=== PATIENT | male | born 1960 | race Caucasian/White ===

== ENCOUNTER 2018-10-04 01:11 | Emergency (ER) | payer MEDICAID, OTHER ==
[2018-10-04 01:44] VITALS: BP 158/86
[2018-10-04] MEDS ORDERED: TENIVAC IM ONE (02:00)
[2018-10-04] MEDS ORDERED: XYLOCAINE 2%/ EPI 1:200,000 INFILTRATI ONE (02:00)
[2018-10-04] MEDS ORDERED: NACL 0.9% IR ONE (02:00)
[2018-10-04] MEDS ORDERED: NACL 0.9% 500 ML IR ONE (02:08)
[2018-10-04] MEDS ORDERED: XYLOCAINE 2%/EPI 1:100,000 INFILTRATI ONE (02:08)
[2018-10-04] MEDS ORDERED: BOOSTRIX IM ONE (02:15)
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
[2018-10-04] MEDS ORDERED: NAPROSYN PO ONE (02:44)
== END 2018-10-04 02:57 ==
LOC: ED 01:11
DX: S61.411A Laceration without foreign body of right hand, initial encounter (principal); Y04.8XXA Assault by other bodily force, initial encounter; Y93.89 Activity, other specified; Y92.89 Other specified places as the place of occurrence of the external cause; Y99.8 Other external cause status
CPT/HCPCS: 90471; 90715

== ENCOUNTER 2021-10-29 01:15 | Inpatient (IN) | payer SELFPAY ==
[2021-10-29] MEDS ORDERED: FUROSEMIDE 40 MG/4 ML INJ IV ONE (02:00)
[2021-10-29 02:42] LABS: Hematocrit 41.3 % (35.5-45.6); Hemoglobin 12.9 gm/dl (11.8-15.2); Mean Corpuscular HGB Conc 31 % (32-34); Mean Corpuscular Volume 91 fl (84-94); Platelet Count 155 K/mm3 (140-440); Red Blood Count 4.56 M/mm3 (3.65-5.03); Red Cell Distribution Width 15.7 % (13.2-15.2)
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
[2021-10-29 02:59] LABS: Alanine Aminotransferase 29 units/L (7-56); Albumin 3.7 g/dL (3.9-5); BUN/Creatinine Ratio 20; Blood Urea Nitrogen 18 mg/dL (9-20); Calcium 8.5 mg/dL (8.4-10.2); Hemolysis Index 10
--- NOTE | 2021-10-29 03:08 | XRay Report ---
CHEST 1 VIEW INDICATION / CLINICAL INFORMATION: liana on bipap. COMPARISON: Chest x-ray 03/20/2016 FINDINGS: SUPPORT DEVICES: None. HEART / MEDIASTINUM: Mild cardiomegaly. LUNGS / PLEURA: Increased perihilar vascular markings likely accentuated by technique. Beam attenuati on in the lower chest appears moderate. No focal consolidation. BONES: No significant osseous abnormality. ADDITIONAL FINDINGS: No significant additional findings. IMPRESSION: 1. Stable cardiomegaly. 2. No focal airspace consolidation. Minimal interstitial edema versus beam attenuation. Signer Name: Hernan Cunningham II, MD Signed: 10/29/2021 3:03 AM Workstation Name: [id number]
[2021-10-29] MEDS ORDERED: ONDANSETRON 4 MG/2 ML INJ IV PRN ×2 (05:00→05:19)
[2021-10-29] MEDS ORDERED: ACETAMINOPHEN 325 MG TAB PO PRN ×2 (05:00→05:19)
[2021-10-29] MEDS ORDERED: MORPHINE 2 MG/1 ML INJ IV PRN (05:00)
[2021-10-29] MEDS ORDERED: MORPHINE 4 MG/1 ML INJ IV PRN (05:19)
[2021-10-29] MEDS ORDERED: MAGNESIUM HYDROXIDE (MOM) ORAL LIQD UDC PO PRN (05:19)
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
[2021-10-29] MEDS: FUROSEMIDE 40 MG/4 ML INJ IV SCH ×2 (06:36→18:55)
[2021-10-29] MEDS: MORPHINE 2 MG/1 ML INJ IV PRN (10:41)
--- NOTE | 2021-10-29 11:43 | Event Note ---
Date: 10/29/21 Patient still seen and examined still with shortness of breath appears to be in A. fib. Pulmonary was consulted on admission I will go ahead and consult jackhammer splitter operator to assist with management of the patient's. We will try to obtain accurate home medication history and reconciled almost any records available. Continue IM care
[2021-10-29] MEDS ORDERED: AMIODARONE 900 MG in DEXTROSE 5% IN WATER 482 ML IV SCH (14:30)
[2021-10-29] MEDS ORDERED: AMIODARONE 150 MG in DEXTROSE 5% IN WATER 97 ML IV SCH (14:30)
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
[2021-10-29] MEDS: HEPARIN 5,000 UNIT/1 ML VIAL SUB-Q SCH ×2 (14:45→21:47)
[2021-10-30 05:16] LABS: Basophils # (Auto) 0.1 K/mm3 (0.0-0.1); Basophils % (Auto) 0.3 % (0.0-1.8); Eosinophils % (Auto) 0.1 % (0.0-4.3); Hematocrit 43.4 % (35.5-45.6); Hemoglobin 14.2 gm/dl (11.8-15.2); Lymphocytes # (Auto) 2.9 K/mm3 (1.2-5.4); Mean Corpuscular HGB Conc 33 % (32-34); Mean Corpuscular Volume 91 fl (84-94); Monocytes % (Auto) 10.5 % (0.0-7.3); Platelet Count 209 K/mm3 (140-440); Red Blood Count 4.77 M/mm3 (3.65-5.03); Red Cell Distribution Width 16.1 % (13.2-15.2)
[2021-10-30 05:30] LABS: Calcium 8.6 mg/dL (8.4-10.2)
[2021-10-30] MEDS: FUROSEMIDE 40 MG/4 ML INJ IV SCH ×2 (05:31→18:53)
[2021-10-30] MEDS: HEPARIN 5,000 UNIT/1 ML VIAL SUB-Q SCH ×2 (05:31→13:20)
--- NOTE | 2021-10-30 11:00 | Event Note ---
Date: 10/30/21 Agree with IMS assessment. Reviewed cards notes and in light of EF being so significantly lower now, patient could have central sleep apnea from left sided heart failure. No real risk factors for COPD but this could be worked up as an outpatient. Would need in house PSG given heart disease but my office would not be able to do this. Could see if he could be arranged to be done at [facility] post discharge. All other management per cardiology. Will sign off.
--- NOTE | 2021-10-30 12:14 | Progress Note ---
Assessment and Plan Assessment and plan: 60-year-old male with known history of CVA, coronary artery disease with stent placement, CHF presenting in the emergency room today complaining of shortness of breath which started earlier today. Shortness of breath was said to have gotten progressively worse. He denies any chest pain, no nausea or vomiting and no abdominal pain. Denies any headache or dizziness and denies any diaphoresis. He has had some mild cough which is nonproductive. Patient denies any sick contacts and no recent travel. Denies any contact with anyone with COVID-19. Upon arrival in the emergency room patient was found to be in acute respiratory distress and was subsequently placed on BiPAP. Work-up in the emergency room today, chest x-ray reveals stable cardiomegaly, no focal airspace consolidation, there is minimal interstitial edema. Labs were significant for BNP of 1219. All other labs were essentially unrem arkable. CT angio pending to rule out pulmonary embolism and Doppler of lower extremities also pending. 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 Also noted to have atrial fibrillation for which patient is currently on amiodarone drip. It is presumed that the patient has obstructive sleep apnea considering his obesity and sleep pattern. Outpatient sleep study will be conducted and recommended on discharge. He does have a noted leukocytosis although did not receive any aust[place] roids no evidence of fever and no source of infection appreciated. Will monitor and trend this. We will continue monitoring in IMCU at this time until weaned off amiodarone. We will check thyroid function in addition to current work-up. Assessment Acute exacerbation of congestive heart failure presumed systolic Atrial fibrillation Morbid obesity History of CVA Presumed obstructive sleep apnea Systemic inflammatory response syndrome without evidence of sepsis or organ dysfunction Plan Continue Amiadrone drip Check TSH, Free T4 Continue Diuretics and monitor daily wieght Continue appropriate home medications DVT/GI prophy 35 minutes critical care time History Interval history: Patient seen and examined, resting and sitting up. Still with some wheezing but HR improved and breathing much better. Hospitalist Physical - Physical exam Narrative exam: VITAL SIGNS: Reviewed. GENERAL: The patient appears normally developed, Vital signs as documented. HEAD: No signs of head trauma. EYES: Pupils are equal. Extraocular motions intact. EARS: Hearing grossly intact. MOUTH: Oropharynx is normal. NECK: No adenopathy, no JVD. CHEST: Chest with bibasilar wheeze with mild crepitation breath sounds bilaterally. CARDIAC: Irregularly irregular. S1 and S2, without murmurs, gallops, or rubs. VASCULAR: 2+ bilateral pitting edema. Peripheral pulses normal and equal in all extremities. ABDOMEN: Soft, non tender and non distended. No rebound or guarding, and no masses palpated. Bowel Sounds normal. MUSCULOSKELETAL: Good range of motion of all major joints. Extremities without clubbing, cyanosis. 2+ bilateral pitting edema. NEUROLOGIC EXAM: Alert and oriented x 3 No focal sensory or strength deficits. Speech normal. Follows commands. PSYCHIATRIC: Mood normal. SKIN: detail exam as documented in skin assessment - Constitutional Vitals: Temp Pulse Resp BP Pulse Ox 97.9 F 88 25 H 138/80 98 10/30/21 08:00 10/30/21 11:00 10/30/21 11:00 10/30/21 11:00 10/30/21 11:00 General appearance: Present: mild distress HEART Score - HEART Score Troponin: Troponin T < 0.010 ng/mL (0.00-0.029) 10/29/21 02:00 Results - Labs CBC & Chem 7: 10/30/21 04:34 10/30/21 04:34 Labs: Laboratory Last Values WBC 19.4 K/mm3 (4.5-11.0) H 10/30/21 04:34 RBC 4.77 M/mm3 (3.65-5.03) 10/30/21 04:34 Hgb 14.2 gm/dl (11.8-15.2) 10/30/21 04:34 Hct 43.4 % (35.5-45.6) 10/30/21 04:34 MCV 91 fl (84-94) 10/30/21 04:34 MCH 30 pg (28-32) 10/30/21 04:34 MCHC 33 % (32-34) 10/30/21 04:34 RDW 16.1 % (13.2-15.2) H 10/30/21 04:34 Plt Count 209 K/mm3 (140-440) 10/30/21 04:34 Lymph % (Auto) 15.0 % (13.4-35.0) 10/30/21 04:34 Shannon % (Auto) 10.5 % (0.0-7.3) H 10/30/21 04:34 Eos % (Auto) 0.1 % (0.0-4.3) 10/30/21 04:34 Baso % (Auto) 0.3 % (0.0-1.8) 10/30/21 04:34 Lymph # (Auto) 2.9 K/mm3 (1.2-5.4) 10/30/21 04:34 Shannon # (Auto) 2.0 K/mm3 (0.0-0.8) H 10/30/21 04:34 Eos # (Auto) 0.0 K/mm3 (0.0-0.4) 10/30/21 04:34 Baso # (Auto) 0.1 K/mm3 (0.0-0.1) 10/30/21 04:34 Seg Neutrophils % 74.1 % (40.0-70.0) H 10/30/21 04:34 Seg Neutrophils # 14.4 K/mm3 (1.8-7.7) H 10/30/21 04:34 D-Dimer 1418.90 ng/mlDDU (0-234) H 10/29/21 05:38 ABG pH 7.381 (7.320-7.450) 10/29/21 02:00 POC ABG pCO2 38.1 mmHg (32.0-48.0) 10/29/21 02:00 POC ABG pO2 73.8 mmHg (83-108) L 10/29/21 02:00 POC ABG HCO3 22.1 10/29/21 02:00 ABG O2 Saturation 94.4 (0-100) 10/29/21 02:00 POC ABG Base Excess -2.6 10/29/21 02:00 ABG Hemoglobin 13.7 (12.0-17.5) 10/29/21 02:00 ABG Oxyhemoglobin 93.4 (94-98) L 10/29/21 02:00 ABG Methemoglobin 0.3 (0.0-1.5) 10/29/21 02:00 Carboxyhemoglobin 0.8 (0.5-1.5) 10/29/21 02:00 FiO2 % 45 10/29/21 02:00 Sodium 135 mmol/L (137-145) L 10/30/21 04:34 Potassium 4.7 mmol/L (3.6-5.0) 10/30/21 04:34 Chloride 97.5 mmol/L (98-107) L 10/30/21 04:34 Carbon Dioxide 25 mmol/L (22-30) 10/30/21 04:34 Anion Gap 17 mmol/L 10/30/21 04:34 BUN 30 mg/dL (9-20) H 10/30/21 04:34 Creatinine 1.3 mg/dL (0.8-1.3) 10/30/21 04:34 Estimated GFR 56 ml/min 10/30/21 04:34 BUN/Creatinine Ratio 23 % 10/30/21 04:34 Glucose 141 mg/dL (75-100) H 10/30/21 04:34 Calcium 8.6 mg/dL (8.4-10.2) 10/30/21 04:34 Magnesium 1.80 mg/dL (1.7-2.3) 10/29/21 13:24 Total Bilirubin 0.50 mg/dL (0.1-1.2) 10/29/21 02:00 AST 44 units/L (5-40) H 10/29/21 02:00 ALT 29 units/L (7-56) 10/29/21 02:00 Alkaline Phosphatase 154 units/L (35-129) H 10/29/21 02:00 Troponin T < 0.010 ng/mL (0.00-0.029) 10/29/21 02:00 NT-Pro-B Natriuret Pep 1219 pg/mL (0-900) H 10/29/21 02:00 Total Protein 7.7 g/dL (6.3-8.2) 10/29/21 02:00 Albumin 3.7 g/dL (3.9-5) L 10/29/21 02:00 Albumin/Globulin Ratio 0.9 % 10/29/21 02:00 TSH 3.290 mlU/mL (0.270-4.200) 10/29/21 13:24 Free T4 0.75 ng/dL (0.76-1.46) L 10/29/21 13:24 Hyatt/IV: Voiding Method Urinal Active Medications - Current Medications Current Medications: Generic Name Dose Route Start Last Admin Trade Name Freq PRN Reason Stop Dose Admin Acetaminophen 650 mg 10/29/21 05:19 10/29/21 21:47 Acetaminophen 325 Mg Tab PO 650 mg Q6H PRN Administration Pain MILD(1-3)/Fever >100.5/FORBES Furosemide 40 mg 10/29/21 06:00 10/30/21 05:31 Furosemide 40 Mg/4 Ml Inj IV 40 mg BID@0600,1800 SERENITY Administration Heparin Sodium (Porcine) 5,000 unit 10/29/21 14:00 10/30/21 05:31 Heparin 5,000 Unit/1 Ml Vial SUB-Q 5,000 unit Q8HR SERENITY Administration Amiodarone HCl 900 mg/ 500 mls @ 33.333 mls/hr 10/29/21 14:30 10/29/21 21:48 Dextrose IV 0.5 mg/min DIRECT SERENITY 16.667 mls/hr Titration Protocol 1 MG/MIN Magnesium Hydroxide 30 ml 10/29/21 05:19 Magnesium Hydroxide (Mom) Oral Liqd Udc PO Q4H PRN Constipation Morphine Sulfate 2 mg 10/29/21 05:19 10/29/21 10:41 Morphine 2 Mg/1 Ml Inj IV 2 mg Q4H PRN Administration Pain, Moderate (4-6) Morphine Sulfate 4 mg 10/29/21 05:19 Morphine 4 Mg/1 Ml Inj IV Q4H PRN Pain , Severe (7-10) Ondansetron HCl 4 mg 10/29/21 05:19 Ondansetron 4 Mg/2 Ml Inj IV Q8H PRN Nausea And Vomiting Sodium Chloride 10 ml 10/29/21 10:00 10/29/21 21:49 Sodium Chloride 0.9% 10 Ml Flush Syringe IV 10 ml BID SERENITY Administration Sodium Chloride 10 ml 10/29/21 05:19 Sodium Chloride 0.9% 10 Ml Flush Syringe IV PRN PRN LINE FLUSH Nutrition/Malnutrition Assess - Dietary Evaluation Nutrition/Malnutrition Findings: Nutrition Notes Start: 10/29/21 17:13 Freq: Status: Active Protocol: Document 10/29/21 17:13 EDUARDO (Rec: 10/29/21 17:21 EDUARDO [id number]) Nutrition Notes Need for Assessment generated from: MD Order,Education Initial or Follow up Brief Note Current Diagnosis Coronary Artery Disease,Stroke Other Pertinent Diagnosis CAD s/p Stent Placement, HFpEF , Dyspnea. Current Diet Cardiac Diet (since B 10/29). Height 5 ft 9 in Weight 98.2 kg Carmen Body Weight (kg) 72.72 BMI 31.9 Intake Prior to Admission Good Weight change and time frame Pt states having loss, unintentionally, between 2 and 13 lb recently. Weight Status Obese Subjective/Other Information RD consult for nutrition education assessment. No reports available on Pt's PO intake of meals at the time , will assess at F/U. Pt is on Nasal Cannula, O2 saturation @ 96%, according to Physical Assessment History notes. Pt still in critical condition , not a candidate for Nutrition Education at the time, will assess feasibility on F/U. Percent of energy/protein needs met: Prescribed Cardiac Diet provides for energy/protein needs (2,230 Kcal/85 g) during LOS. Nutrition Intervention Follow-Up By: 11/05/21 Additional Comments Nutrition education will be provided at F/U, if feasible. Continue monitoring food tolerance, %PO intake of meals , and BM.
--- NOTE | 2021-10-30 12:41 | Cat Scan Report ---
CTA CHEST WITH CONTRAST INDICATION / CLINICAL INFORMATION: Venous thromboembolism. Shortness of breath. Chest pain. TECHNIQUE: Axial CT images were obtained through the chest after injection of 85 cc Omnipaque 350 IV contrast. 3 plane MIP and/or 3D reconstructions were produced. All CT scans at this location are perf ormed using CT dose reduction for ALARA by means of automated exposure control. COMPARISON: Bilateral lower extremity venous Doppler performed today. One view of the chest from 10/29. FINDINGS: PULMONARY EMBOLUS: None. THORACIC AORTA: Mild atherosclerotic calcification without acute abnormality. HEART: Similarly moderately enlarged. No other significant abnormality. CORONARY ARTERY CALCIFICATION: Present -- Mild. MEDIASTINUM / ZEYAD: No significant abnormality. PLEURA: Small left pleural effusion. No pneumothorax. LUNGS: There is mild bibasilar atelectasis. The lungs are otherwise clear. ADDITIONAL FINDINGS: None. UPPER ABDOMEN: Reflux of contrast into the IVC and hepatic veins likely is due to right heart dysfunc tion. No other significant abnormality. SKELETAL STRUCTURES: No significant osseous abnormality. IMPRESSION: 1. No CT evidence for pulmonary embolism. 2. Similar moderate cardiomegaly with a small left pleural effusion. 3. Additional findings as above. Signer Name: Gurwinder Lee MD Signed: 10/30/2021 12:37 PM Workstation Name: [id number]
--- NOTE | 2021-10-30 12:49 | Vascular Lab Report ---
DUPLEX DOPPLER LOWER EXTREMITY VEINS, BILATERAL INDICATION / CLINICAL INFORMATION: vte. TECHNIQUE: Duplex doppler imaging was performed through the veins of both lower extremities using venous ever amanda and other maneuvers. COMPARISON: None available. FINDINGS: RIGHT COMMON FEMORAL VEIN: Negative. RIGHT FEMORAL VEIN: Negative. RIGHT POPLITEAL VEIN: Negative. RIGHT CALF VEINS: Negative. LEFT COMMON FEMORAL VEIN: Negative. LEFT FEMORAL VEIN: Negative. LEFT POPLITEAL VEIN: Negative. LEFT CALF VEINS: Negative. ADDITIONAL FINDINGS: None. IMPRESSION: 1. No sonographic evidence for DVT in either lower extremity. Signer Name: Rell Leyva MD Signed: 10/30/2021 12:44 PM Workstation Name: [id number]
[2021-10-30] MEDS: AMIODARONE 200 MG TAB PO SCH ×2 (13:20→21:37)
--- NOTE | 2021-10-30 13:28 | Progress Note ---
Assessment and Plan - Patient Problems (1) Acute exacerbation of CHF (congestive heart failure) Current Visit: Yes Status: Acute Plan to address problem: Patient has shortness of breath and evidence of fluid overload. His previous LV function assessment 5 years ago reported normal left ventricular systolic function. Echocardiogram shows severe left ventricular systolic dysfunction, ejection fraction less than 20%. In addition to oral guideline directed medical therapy and intravenous diuretics, we will add intravenous milrinone for 72 hours. (2) Atrial fibrillation Current Visit: Yes Status: Acute Plan to address problem: Atrial fibrillation of uncertain chronicity, we will continue amiodarone 200 mg twice daily and add Eliquis 5 mg twice daily. Subjective Date of service: 10/30/21 Principal diagnosis: Shortness of breath, congestive heart failure Interval history: Patient has persistent mild dyspnea, remains in atrial fibrillation with a well- controlled ventricular rate. Echocardiogram showed severe left ventricular systolic dysfunction with ejection fraction less than 20%. Objective Vital Signs Temp Pulse Pulse Resp BP Pulse Ox 10/30/21 11:00 88 25 H 138/80 98 10/30/21 10:01 63 14 138/80 98 10/30/21 10:00 101 H 10/30/21 09:36 97 10/30/21 09:01 62 16 148/97 99 10/30/21 08:00 97.9 F 80 101 H 19 135/95 98 10/30/21 07:01 85 18 141/97 98 10/30/21 06:00 67 18 133/94 98 10/30/21 05:01 67 16 142/85 99 10/30/21 04:01 67 23 113/90 97 10/30/21 04:00 97.8 F 67 20 98 10/30/21 03:00 83 18 140/85 100 10/30/21 02:01 79 24 135/71 98 10/30/21 01:01 63 21 153/103 100 10/30/21 00:20 83 19 121/82 99 10/30/21 00:01 71 22 121/82 97 10/30/21 00:00 97.9 F 103 H 18 99 10/29/21 23:00 63 20 129/85 99 10/29/21 22:01 63 35 H 122/83 98 10/29/21 22:00 68 10/29/21 21:01 85 22 127/71 98 10/29/21 20:01 86 28 H 133/65 99 10/29/21 20:00 68 24 98 10/29/21 19:41 98 10/29/21 19:37 98.4 F 10/29/21 19:01 65 24 135/74 98 10/29/21 18:01 70 19 135/82 94 10/29/21 17:01 86 21 135/82 97 10/29/21 16:01 129 H 27 H 135/82 95 10/29/21 16:00 75 22 97 10/29/21 15:00 93 H 19 135/82 93 10/29/21 14:01 99 H 22 134/82 96 - Physical Examination General: Other (Mild dyspnea at rest) HEENT: Positive: PERRL Neck: Positive: neck supple Cardiac: Positive: irregularly irregular Lungs: Positive: Decreased Breath Sounds Neuro: Positive: Grossly Intact Abdomen: Positive: Soft Skin: Positive: Clear Extremities: Present: +1 Edema - Labs and Meds CBC 10/30/21 Range/Units 04:34 WBC 19.4 H (4.5-11.0) K/mm3 RBC 4.77 (3.65-5.03) M/mm3 Hgb 14.2 (11.8-15.2) gm/dl Hct 43.4 (35.5-45.6) % Plt Count 209 (140-440) K/mm3 Lymph # (Auto) 2.9 (1.2-5.4) K/mm3 [place] # (Auto) 2.0 H (0.0-0.8) K/mm3 Eos # (Auto) 0.0 (0.0-0.4) K/mm3 Baso # (Auto) 0.1 (0.0-0.1) K/mm3 Comprehensive Metabolic Panel 10/30/21 Range/Units 04:34 Sodium 135 L (137-145) mmol/L Potassium 4.7 (3.6-5.0) mmol/L Chloride 97.5 L (98-107) mmol/L Carbon Dioxide 25 (22-30) mmol/L BUN 30 H (9-20) mg/dL Creatinine 1.3 (0.8-1.3) mg/dL Glucose 141 H (75-100) mg/dL Calcium 8.6 (8.4-10.2) mg/dL
[2021-10-30] MEDS: APIXABAN 5 MG TAB PO SCH ×2 (16:14→21:39)
[2021-10-30] MEDS: SPIRONOLACTONE 25 MG TAB PO SCH (16:14)
[2021-10-30] MEDS: LISINOPRIL 5 MG TAB PO SCH (16:14)
[2021-10-30] MEDS: carvediloL 6.25 MG TAB PO SCH ×2 (16:14→21:37)
[2021-10-30 17:56] LABS: Hematocrit 41.7 % (35.5-45.6); Hemoglobin 13.6 gm/dl (11.8-15.2); Mean Corpuscular HGB Conc 33 % (32-34); Mean Corpuscular Volume 92 fl (84-94); Platelet Count 172 K/mm3 (140-440); Red Blood Count 4.55 M/mm3 (3.65-5.03); Red Cell Distribution Width 16.2 % (13.2-15.2)
[2021-10-30 18:36] LABS: INR 1.16 (0.87-1.13)
[2021-10-30 18:37] LABS: Partial Thromboplastin Time 27.7 Sec. (24.2-36.6)
--- NOTE | 2021-10-30 19:02 | Electrocardiograph Report ---
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
[2021-10-30] MEDS: MILRINONE-D5W 20 MG/100 ML 20 MG/100 ML BAG IV SCH (20:00)
[2021-10-30] MEDS: MORPHINE 2 MG/1 ML INJ IV PRN (23:38)
[2021-10-31] MEDS: MILRINONE-D5W 20 MG/100 ML 20 MG/100 ML BAG IV SCH ×3 (02:53→21:28)
[2021-10-31] MEDS: FUROSEMIDE 40 MG/4 ML INJ IV SCH ×2 (05:25→18:17)
--- NOTE | 2021-10-31 08:22 | Progress Note ---
Assessment and Plan Assessment and plan: 60-year-old male with known history of CVA, coronary artery disease with stent placement, CHF presenting in the emergency room today complaining of shortness of breath which started earlier today. Shortness of breath was said to have gotten progressively worse. He denies any chest pain, no nausea or vomiting and no abdominal pain. Denies any headache or dizziness and denies any diaphoresis. He has had some mild cough which is nonproductive. Patient denies any sick contacts and no recent travel. Denies any contact with anyone with COVID-19. Upon arrival in the emergency room patient was found to be in acute respiratory distress and was subsequently placed on BiPAP. Work-up in the emergency room today, chest x-ray reveals stable cardiomegaly, no focal airspace consolidation, there is minimal interstitial edema. Labs were significant for BNP of 1219. All other labs were essentially unrem arkable. CT angio pending to rule out pulmonary embolism and Doppler of lower extremities also pending. 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 Also noted to have atrial fibrillation for which patient is currently on amiodarone drip. It is presumed that the patient has obstructive sleep apnea considering his obesity and sleep pattern. Outpatient sleep study will be conducted and recommended on discharge. He does have a noted leukocytosis although did not receive any [place] roids no evidence of fever and no source of infection appreciated. Will monitor and trend this. We will continue monitoring in IMCU at this time until weaned off amiodarone. We will check thyroid function in addition to current work-up. 10/31: Patient seen and examined appears to be improving but I was a little bit concerned this morning as his oxygen was out and he was having increased work of breathing with his respiration. However cardiology had yesterday started Milirone, Amiodarone converted to oral. Continue to monitor IMCU we will probably transfer to the floor tomorrow if symptomatically better and anticipate discharge in 48 hours. He does have a subclinical hypothyroidism will monitor closely Assessment Acute exacerbation of congestive heart failure presumed systolic Atrial fibrillation Morbid obesity History of CVA Subclinical hypothyroidism Presumed obstructive sleep apnea Systemic inflammatory response syndrome without evidence of sepsis or organ dysfunction Plan Strict I's and O's Continue Diuretics and monitor daily wieght Continue appropriate home medications DVT/GI prophy 35 minutes critical care time History Interval history: Patient seen and examined, resting and sitting up. Still with some wheezing but HR improved and breathing much better. Hospitalist Physical - Physical exam Narrative exam: VITAL SIGNS: Reviewed. GENERAL: The patient appears normally developed, Vital signs as documented. HEAD: No signs of head trauma. EYES: Pupils are equal. Extraocular motions intact. EARS: Hearing grossly intact. MOUTH: Oropharynx is normal. NECK: No adenopathy, no JVD. CHEST: Chest with bibasilar wheeze with mild crepitation breath sounds bilaterally. CARDIAC: Irregularly irregular. S1 and S2, without murmurs, gallops, or rubs. VASCULAR: 2+ bilateral pitting edema. Peripheral pulses normal and equal in all extremities. ABDOMEN: Soft, non tender and non distended. No rebound or guarding, and no masses palpated. Bowel Sounds normal. MUSCULOSKELETAL: Good range of motion of all major joints. Extremities without clubbing, cyanosis. 2+ bilateral pitting edema. NEUROLOGIC EXAM: Alert and oriented x 3 No focal sensory or strength deficits. Speech normal. Follows commands. PSYCHIATRIC: Mood normal. SKIN: detail exam as documented in skin assessment - Constitutional Vitals: Temp Pulse Resp BP Pulse Ox 98.6 F 82 20 128/103 96 10/31/21 04:00 10/31/21 06:01 10/31/21 06:01 10/31/21 06:01 10/31/21 06:01 General appearance: Present: mild distress HEART Score - HEART Score Troponin: Troponin T < 0.010 ng/mL (0.00-0.029) 10/29/21 02:00 Results - Labs CBC & Chem 7: 10/30/21 17:38 10/30/21 17:38 Labs: Laboratory Last Values WBC 13.2 K/mm3 (4.5-11.0) H 10/30/21 17:38 RBC 4.55 M/mm3 (3.65-5.03) 10/30/21 17:38 Hgb 13.6 gm/dl (11.8-15.2) 10/30/21 17:38 Hct 41.7 % (35.5-45.6) 10/30/21 17:38 MCV 92 fl (84-94) 10/30/21 17:38 MCH 30 pg (28-32) 10/30/21 17:38 MCHC 33 % (32-34) 10/30/21 17:38 RDW 16.2 % (13.2-15.2) H 10/30/21 17:38 Plt Count 172 K/mm3 (140-440) 10/30/21 17:38 Lymph % (Auto) 15.0 % (13.4-35.0) 10/30/21 04:34 [place] % (Auto) 10.5 % (0.0-7.3) H 10/30/21 04:34 Eos % (Auto) 0.1 % (0.0-4.3) 10/30/21 04:34 Baso % (Auto) 0.3 % (0.0-1.8) 10/30/21 04:34 Lymph # (Auto) 2.9 K/mm3 (1.2-5.4) 10/30/21 04:34 [place] # (Auto) 2.0 K/mm3 (0.0-0.8) H 10/30/21 04:34 Eos # (Auto) 0.0 K/mm3 (0.0-0.4) 10/30/21 04:34 Baso # (Auto) 0.1 K/mm3 (0.0-0.1) 10/30/21 04:34 Seg Neutrophils % 74.1 % (40.0-70.0) H 10/30/21 04:34 Seg Neutrophils # 14.4 K/mm3 (1.8-7.7) H 10/30/21 04:34 PT 16.1 Sec. (12.2-14.9) H 10/30/21 17:38 INR 1.16 (0.87-1.13) H 10/30/21 17:38 APTT 27.7 Sec. (24.2-36.6) 10/30/21 17:38 D-Dimer 1418.90 ng/mlDDU (0-234) H 10/29/21 05:38 ABG pH 7.381 (7.320-7.450) 10/29/21 02:00 POC ABG pCO2 38.1 mmHg (32.0-48.0) 10/29/21 02:00 POC ABG pO2 73.8 mmHg (83-108) L 10/29/21 02:00 POC ABG HCO3 22.1 10/29/21 02:00 ABG O2 Saturation 94.4 (0-100) 10/29/21 02:00 POC ABG Base Excess -2.6 10/29/21 02:00 ABG Hemoglobin 13.7 (12.0-17.5) 10/29/21 02:00 ABG Oxyhemoglobin 93.4 (94-98) L 10/29/21 02:00 ABG Methemoglobin 0.3 (0.0-1.5) 10/29/21 02:00 Carboxyhemoglobin 0.8 (0.5-1.5) 10/29/21 02:00 FiO2 % 45 10/29/21 02:00 Sodium 135 mmol/L (137-145) L 10/30/21 04:34 Potassium 4.7 mmol/L (3.6-5.0) 10/30/21 04:34 Chloride 97.5 mmol/L (98-107) L 10/30/21 04:34 Carbon Dioxide 25 mmol/L (22-30) 10/30/21 04:34 Anion Gap 17 mmol/L 10/30/21 04:34 BUN 30 mg/dL (9-20) H 10/30/21 04:34 Creatinine 1.2 mg/dL (0.8-1.3) 10/30/21 17:38 Estimated GFR > 60 ml/min 10/30/21 17:38 BUN/Creatinine Ratio 23 % 10/30/21 04:34 Glucose 141 mg/dL (75-100) H 10/30/21 04:34 Calcium 8.6 mg/dL (8.4-10.2) 10/30/21 04:34 Magnesium 1.80 mg/dL (1.7-2.3) 10/29/21 13:24 Total Bilirubin 0.50 mg/dL (0.1-1.2) 10/29/21 02:00 AST 44 units/L (5-40) H 10/29/21 02:00 ALT 29 units/L (7-56) 10/29/21 02:00 Alkaline Phosphatase 154 units/L (35-129) H 10/29/21 02:00 Troponin T < 0.010 ng/mL (0.00-0.029) 10/29/21 02:00 NT-Pro-B Natriuret Pep 1219 pg/mL (0-900) H 10/29/21 02:00 Total Protein 7.7 g/dL (6.3-8.2) 10/29/21 02:00 Albumin 3.7 g/dL (3.9-5) L 10/29/21 02:00 Albumin/Globulin Ratio 0.9 % 10/29/21 02:00 TSH 3.290 mlU/mL (0.270-4.200) 10/29/21 13:24 Free T4 0.75 ng/dL (0.76-1.46) L 10/29/21 13:24 SARS-CoV-2 (PCR) Negative (Negative) 10/30/21 16:49 Hyatt/IV: Voiding Method Urinal Active Medications - Current Medications Current Medications: Generic Name Dose Route Start Last Admin Trade Name Freq PRN Reason Stop Dose Admin Acetaminophen 650 mg 10/29/21 05:19 10/29/21 21:47 Acetaminophen 325 Mg Tab PO 650 mg Q6H PRN Administration Pain MILD(1-3)/Fever >100.5/FORBES Amiodarone HCl 200 mg 10/30/21 13:00 10/30/21 21:37 Amiodarone 200 Mg Tab PO 200 mg BID SERENITY Administration Apixaban 5 mg 10/30/21 14:00 10/30/21 21:39 Apixaban 5 Mg Tab PO Not Given Q12HR SERENITY Protocol Carvedilol 6.25 mg 10/30/21 14:00 10/30/21 21:37 Carvedilol 6.25 Mg Tab PO 6.25 mg BID SERENITY Administration Furosemide 40 mg 10/29/21 06:00 10/31/21 05:25 Furosemide 40 Mg/4 Ml Inj IV 40 mg BID@0600,1800 SERENITY Administration Milrinone Lactate/Dextrose 20 mg in 100 mls @ 11.07 mls/hr 10/30/21 14:00 10/31/21 02:53 Milrinone-D5w 20 Mg/100 Ml IV 11/02/21 13:59 0.375 mcg/kg/min DIRECT SERENITY 11.07 mls/hr Administration Protocol 0.375 MCG/KG/MIN Lisinopril 5 mg 10/30/21 14:00 10/30/21 16:14 Lisinopril 5 Mg Tab PO 5 mg QDAY SERENITY Administration Magnesium Hydroxide 30 ml 10/29/21 05:19 Magnesium Hydroxide (Mom) Oral Liqd Udc PO Q4H PRN Constipation Morphine Sulfate 2 mg 10/29/21 05:19 10/30/21 23:38 Morphine 2 Mg/1 Ml Inj IV 2 mg Q4H PRN Administration Pain, Moderate (4-6) Morphine Sulfate 4 mg 10/29/21 05:19 Morphine 4 Mg/1 Ml Inj IV Q4H PRN Pain , Severe (7-10) Ondansetron HCl 4 mg 10/29/21 05:19 Ondansetron 4 Mg/2 Ml Inj IV Q8H PRN Nausea And Vomiting Sodium Chloride 10 ml 10/29/21 10:00 10/30/21 21:37 Sodium Chloride 0.9% 10 Ml Flush Syringe IV Not Given BID SERENITY Sodium Chloride 10 ml 10/29/21 05:19 Sodium Chloride 0.9% 10 Ml Flush Syringe IV PRN PRN LINE FLUSH Spironolactone 25 mg 10/30/21 14:00 10/30/21 16:14 Spironolactone 25 Mg Tab PO 25 mg QDAY SERENITY Administration Nutrition/Malnutrition Assess - Dietary Evaluation Nutrition/Malnutrition Findings: Nutrition Notes Start: 10/29/21 17:13 Freq: Status: Active Protocol: Document 10/29/21 17:13 EDUARDO (Rec: 10/29/21 17:21 EDUARDO [id number]) Nutrition Notes Need for Assessment generated from: MD Order,Education Initial or Follow up Brief Note Current Diagnosis Coronary Artery Disease,Stroke Other Pertinent Diagnosis CAD s/p Stent Placement, HFpEF , Dyspnea. Current Diet Cardiac Diet (since B 10/29). Height 5 ft 9 in Weight 98.2 kg [place] Body Weight (kg) 72.72 BMI 31.9 Intake Prior to Admission Good Weight change and time frame Pt states having loss, unintentionally, between 2 and 13 lb recently. Weight Status Obese Subjective/Other Information RD consult for nutrition education assessment. No reports available on Pt's PO intake of meals at the time , will assess at F/U. Pt is on Nasal Cannula, O2 saturation @ 96%, according to Physical Assessment History notes. Pt still in critical condition , not a candidate for Nutrition Education at the time, will assess feasibility on F/U. Percent of energy/protein needs met: Prescribed Cardiac Diet provides for energy/protein needs (2,230 Kcal/85 g) during LOS. Nutrition Intervention Follow-Up By: 11/05/21 Additional Comments Nutrition education will be provided at F/U, if feasible. Continue monitoring food tolerance, %PO intake of meals , and BM.
[2021-10-31] MEDS: LISINOPRIL 5 MG TAB PO SCH (09:47)
[2021-10-31] MEDS: APIXABAN 5 MG TAB PO SCH ×2 (09:48→21:26)
[2021-10-31] MEDS: AMIODARONE 200 MG TAB PO SCH ×2 (09:48→21:25)
[2021-10-31] MEDS: carvediloL 6.25 MG TAB PO SCH ×2 (09:48→21:25)
[2021-10-31] MEDS: SPIRONOLACTONE 25 MG TAB PO SCH (09:48)
--- NOTE | 2021-10-31 10:39 | Progress Note ---
Assessment and Plan - Patient Problems (1) Acute exacerbation of CHF (congestive heart failure) Current Visit: Yes Status: Acute Plan to address problem: Patient has shortness of breath and evidence of fluid overload. His previous LV function assessment 5 years ago reported normal left ventricular systolic function. Echocardiogram shows severe left ventricular systolic dysfunction, ejection fraction less than 20%. In addition to oral guideline directed medical therapy and intravenous diuretics, we have added intravenous milrinone for 72 hours. (2) Atrial fibrillation Current Visit: Yes Status: Acute Plan to address problem: Atrial fibrillation of uncertain chronicity, we will continue amiodarone 200 mg twice daily and add Eliquis 5 mg twice daily. Subjective Date of service: 10/31/21 Principal diagnosis: Shortness of breath, congestive heart failure, atrial fibrillation Interval history: Patient looks and feels better today, on compliance monitor, there is atrial fibrillation with a well-controlled ventricular rate. He is tolerating the intr avenous milrinone infusion. Objective Vital Signs Temp Pulse Pulse Resp BP Pulse Ox 10/31/21 09:48 88 138/73 10/31/21 09:47 89 138/73 10/31/21 06:01 82 20 128/103 96 10/31/21 05:00 64 15 131/71 98 10/31/21 04:00 98.6 F 64 69 16 129/82 95 10/31/21 03:00 64 23 115/73 94 10/31/21 02:00 64 14 115/73 99 10/31/21 01:00 64 15 124/78 100 10/31/21 00:00 67 78 17 118/67 100 10/30/21 23:54 65 18 117/63 99 10/30/21 23:38 18 10/30/21 23:21 99.2 F 10/30/21 23:11 67 19 81/47 96 10/30/21 23:01 79 22 113/69 98 10/30/21 22:00 76 19 120/73 98 10/30/21 21:01 73 25 H 110/78 98 10/30/21 20:01 88 20 134/76 96 10/30/21 20:00 97.6 F 74 20 98 10/30/21 19:44 96 10/30/21 19:01 80 26 H 134/76 98 10/30/21 18:01 95 H 18 136/111 98 10/30/21 17:00 65 26 H 151/93 97 10/30/21 16:14 85 159/99 10/30/21 16:01 64 18 159/99 99 10/30/21 16:00 98.4 F 72 24 96 10/30/21 15:01 76 21 138/97 100 10/30/21 14:00 78 21 145/106 98 10/30/21 13:01 70 21 152/91 98 10/30/21 12:01 91 H 24 172/105 98 10/30/21 12:00 98.1 F 115 H 23 98 10/30/21 11:00 88 25 H 138/80 98 - Physical Examination General: Other (Mild dyspnea at rest) HEENT: Positive: PERRL Neck: Positive: neck supple Cardiac: Positive: irregularly irregular Lungs: Positive: Decreased Breath Sounds Neuro: Positive: Grossly Intact Abdomen: Positive: Soft Skin: Positive: Clear Extremities: Present: +1 Edema - Labs and Meds Coagulation 10/30/21 Range/Units 17:38 PT 16.1 H (12.2-14.9) Sec. INR 1.16 H (0.87-1.13) APTT 27.7 (24.2-36.6) Sec. CBC 10/30/21 Range/Units 17:38 WBC 13.2 H (4.5-11.0) K/mm3 RBC 4.55 (3.65-5.03) M/mm3 Hgb 13.6 (11.8-15.2) gm/dl Hct 41.7 (35.5-45.6) % Plt Count 172 (140-440) K/mm3 Comprehensive Metabolic Panel 10/30/21 Range/Units 17:38 Creatinine 1.2 (0.8-1.3) mg/dL
[2021-11-01 06:16] LABS: Hematocrit 45.1 % (35.5-45.6); Hemoglobin 14.3 gm/dl (11.8-15.2); Mean Corpuscular HGB Conc 32 % (32-34); Mean Corpuscular Volume 91 fl (84-94); Platelet Count 195 K/mm3 (140-440); Red Blood Count 4.94 M/mm3 (3.65-5.03); Red Cell Distribution Width 16.1 % (13.2-15.2)
[2021-11-01] MEDS: FUROSEMIDE 40 MG/4 ML INJ IV SCH ×2 (06:27→17:59)
[2021-11-01] MEDS: MILRINONE-D5W 20 MG/100 ML 20 MG/100 ML BAG IV SCH ×2 (07:20→22:38)
[2021-11-01] MEDS ORDERED: ROCURONIUM 50 MG/5 ML INJ IV ONE (10:37)
[2021-11-01] MEDS ORDERED: SUCCINYLCHOLINE CHLORIDE 200 MG/10 ML INJ MDV ONE (10:38)
[2021-11-01] MEDS ORDERED: ETOMIDATE 20 MG/10 ML INJ IV ONE (10:38)
[2021-11-01] MEDS ORDERED: fentaNYL 100 MCG/2 ML INJ ONE (10:38)
--- NOTE | 2021-11-01 10:46 | Progress Note ---
Assessment and Plan 1. Chronic combined systolic and diastolic Heart failure. 2. Dilated cardiomyopathy with biventricular failure left ventricular ejection fraction less than 20% 3. Coronary artery disease with a history of PCI and stent insertion 4. Permanent Atrial Fib 5. History of CVA 6. Obesity Plan Patient on a milrinone drip repeat chest x-ray continue diuresis continue anticoagulation. CHF education Subjective Date of service: 11/01/21 Principal diagnosis: Shortness of breath, congestive heart failure, atrial fibrillation Interval history: No cardiac symptoms. Objective Vital Signs Temp Pulse Pulse Resp BP Pulse Ox 11/01/21 06:01 70 12 152/104 100 11/01/21 05:00 66 14 151/91 98 11/01/21 04:00 97.6 F 65 65 18 151/91 96 11/01/21 03:00 69 17 145/96 97 11/01/21 02:00 63 25 H 142/93 100 11/01/21 01:00 65 25 H 134/86 96 11/01/21 00:01 65 23 123/86 96 11/01/21 00:00 97.5 F L 65 23 96 10/31/21 23:01 75 20 136/85 99 10/31/21 22:18 66 25 H 124/76 100 10/31/21 22:01 78 25 H 124/76 97 10/31/21 22:00 78 10/31/21 21:25 97 H 163/109 10/31/21 21:01 68 24 137/77 96 10/31/21 20:42 97 10/31/21 20:01 86 25 H 121/66 94 10/31/21 20:00 98.4 F 86 25 H 94 10/31/21 19:01 97 H 24 163/109 95 10/31/21 18:00 65 22 140/65 94 10/31/21 17:01 66 26 H 146/71 95 10/31/21 16:00 97.8 F 64 79 20 145/77 99 10/31/21 15:01 65 18 113/67 96 10/31/21 14:01 64 20 139/71 97 10/31/21 13:01 70 25 H 128/53 10/31/21 12:40 95 10/31/21 12:01 95 H 22 142/62 94 10/31/21 12:00 98 F 96 H 20 96 10/31/21 11:01 96 H 13 141/78 95 - Physical Examination General: Appears Well, Other (Mild dyspnea at rest) HEENT: Positive: PERRL, Mucus Membranes Moist Neck: Positive: neck supple, trachea midline. Negative: JVD/HJR Cardiac: Positive: irregularly irregular, PMI, Laterally Displaced. Negative: S3, S4 Lungs: Positive: clear to auscultation, No Wheeze, Rales, Rhonchi Neuro: Positive: Grossly Intact Abdomen: Positive: Soft Skin: Positive: Clear Extremities: Present: +1 Edema - Labs and Meds CBC 11/01/21 Range/Units 04:59 WBC 12.4 H (4.5-11.0) K/mm3 RBC 4.94 (3.65-5.03) M/mm3 Hgb 14.3 (11.8-15.2) gm/dl Hct 45.1 (35.5-45.6) % Plt Count 195 (140-440) K/mm3
--- NOTE | 2021-11-01 10:56 | Progress Note ---
Assessment and Plan Assessment and plan: 60-year-old male with known history of CVA, coronary artery disease with stent placement, CHF presenting in the emergency room today complaining of shortness of breath which started earlier today. Shortness of breath was said to have gotten progressively worse. He denies any chest pain, no nausea or vomiting and no abdominal pain. Denies any headache or dizziness and denies any diaphoresis. He has had some mild cough which is nonproductive. Patient denies any sick contacts and no recent travel. Denies any contact with anyone with COVID-19. Upon arrival in the emergency room patient was found to be in acute respiratory distress and was subsequently placed on BiPAP. Work-up in the emergency room today, chest x-ray reveals stable cardiomegaly, no focal airspace consolidation, there is minimal interstitial edema. Labs were significant for BNP of 1219. All other labs were essentially unrem arkable. CT angio pending to rule out pulmonary embolism and Doppler of lower extremities also pending. 10/30: Patient seen and examined today still with shortness of breath although improving carbider input noted continue diuretics. Also noted to have atrial fibrillation for which patient is currently on amiodarone drip. It is presumed that the patient has obstructive sleep apnea considering his obesity and sleep pattern. Outpatient sleep study will be conducted and recommended on discharge. He does have a noted leukocytosis although did not receive any [place] roids no evidence of fever and no source of infection appreciated. Will monitor and trend this. We will continue monitoring in IMCU at this time until weaned off amiodarone. We will check thyroid function in addition to current work-up. 10/31: Patient seen and examined appears to be improving but I was a little bit concerned this morning as his oxygen was out and he was having increased work of breathing with his respiration. However cardiology had yesterday started Milirone, Amiodarone converted to oral. Continue to monitor IMCU we will probably transfer to the floor tomorrow if symptomatically better and anticipate discharge in 48 hours. He does have a subclinical hypothyroidism will monitor closely 11/01: Patient seen and examined, sitting up, showing some clinical improvement, will transfer to the medical floor, continues on Milarone drip anticipate discharge in 24 hrs, Will obtain home o2 eval today. Plan discussed with the patient Assessment Acute exacerbation of congestive heart failure presumed systolic Atrial fibrillation Morbid obesity History of CVA Subclinical hypothyroidism Presumed obstructive sleep apnea Systemic inflammatory response syndrome without evidence of sepsis or organ dysfunction Plan Strict I's and O's Continue Diuretics and monitor daily wieght Continue appropriate home medications DVT/GI prophy History Interval history: Patient seen and examined, resting and sitting up. Still with some wheezing but HR improved and breathing much better. Hospitalist Physical - Physical exam Narrative exam: VITAL SIGNS: Reviewed. GENERAL: The patient appears normally developed, Sitting up, Vital signs as documented. HEAD: No signs of head trauma. EYES: Pupils are equal. Extraocular motions intact. EARS: Hearing grossly intact. MOUTH: Oropharynx is normal. NECK: No adenopathy, no JVD. CHEST: Chest with bibasilar wheeze with mild crepitation breath sounds bilaterally. CARDIAC: Irregularly irregular. S1 and S2, without murmurs, gallops, or rubs. VASCULAR: 2+ bilateral pitting edema. Peripheral pulses normal and equal in all extremities. ABDOMEN: Soft, non tender and non distended. No rebound or guarding, and no masses palpated. Bowel Sounds normal. MUSCULOSKELETAL: Good range of motion of all major joints. Extremities without clubbing, cyanosis. 2+ bilateral pitting edema. NEUROLOGIC EXAM: Alert and oriented x 3 No focal sensory or strength deficits. Speech normal. Follows commands. PSYCHIATRIC: Mood normal. SKIN: detail exam as documented in skin assessment - Constitutional Vitals: Temp Pulse Resp BP Pulse Ox 97.6 F 70 12 152/104 100 11/01/21 04:00 11/01/21 06:01 11/01/21 06:01 11/01/21 06:01 11/01/21 06:01 General appearance: Present: mild distress HEART Score - HEART Score Troponin: Troponin T < 0.010 ng/mL (0.00-0.029) 10/29/21 02:00 Results - Labs CBC & Chem 7: 11/01/21 04:59 10/30/21 17:38 Labs: Laboratory Last Values WBC 12.4 K/mm3 (4.5-11.0) H 11/01/21 04:59 RBC 4.94 M/mm3 (3.65-5.03) 11/01/21 04:59 Hgb 14.3 gm/dl (11.8-15.2) 11/01/21 04:59 Hct 45.1 % (35.5-45.6) 11/01/21 04:59 MCV 91 fl (84-94) 11/01/21 04:59 MCH 29 pg (28-32) 11/01/21 04:59 MCHC 32 % (32-34) 11/01/21 04:59 RDW 16.1 % (13.2-15.2) H 11/01/21 04:59 Plt Count 195 K/mm3 (140-440) 11/01/21 04:59 Lymph % (Auto) 15.0 % (13.4-35.0) 10/30/21 04:34 [place] % (Auto) 10.5 % (0.0-7.3) H 10/30/21 04:34 Eos % (Auto) 0.1 % (0.0-4.3) 10/30/21 04:34 Baso % (Auto) 0.3 % (0.0-1.8) 10/30/21 04:34 Lymph # (Auto) 2.9 K/mm3 (1.2-5.4) 10/30/21 04:34 [place] # (Auto) 2.0 K/mm3 (0.0-0.8) H 10/30/21 04:34 Eos # (Auto) 0.0 K/mm3 (0.0-0.4) 10/30/21 04:34 Baso # (Auto) 0.1 K/mm3 (0.0-0.1) 10/30/21 04:34 Seg Neutrophils % 74.1 % (40.0-70.0) H 10/30/21 04:34 Seg Neutrophils # 14.4 K/mm3 (1.8-7.7) H 10/30/21 04:34 PT 16.1 Sec. (12.2-14.9) H 10/30/21 17:38 INR 1.16 (0.87-1.13) H 10/30/21 17:38 APTT 27.7 Sec. (24.2-36.6) 10/30/21 17:38 D-Dimer 1418.90 ng/mlDDU (0-234) H 10/29/21 05:38 ABG pH 7.381 (7.320-7.450) 10/29/21 02:00 POC ABG pCO2 38.1 mmHg (32.0-48.0) 10/29/21 02:00 POC ABG pO2 73.8 mmHg (83-108) L 10/29/21 02:00 POC ABG HCO3 22.1 10/29/21 02:00 ABG O2 Saturation 94.4 (0-100) 10/29/21 02:00 POC ABG Base Excess -2.6 10/29/21 02:00 ABG Hemoglobin 13.7 (12.0-17.5) 10/29/21 02:00 ABG Oxyhemoglobin 93.4 (94-98) L 10/29/21 02:00 ABG Methemoglobin 0.3 (0.0-1.5) 10/29/21 02:00 Carboxyhemoglobin 0.8 (0.5-1.5) 10/29/21 02:00 FiO2 % 45 10/29/21 02:00 Sodium 135 mmol/L (137-145) L 10/30/21 04:34 Potassium 4.7 mmol/L (3.6-5.0) 10/30/21 04:34 Chloride 97.5 mmol/L (98-107) L 10/30/21 04:34 Carbon Dioxide 25 mmol/L (22-30) 10/30/21 04:34 Anion Gap 17 mmol/L 10/30/21 04:34 BUN 30 mg/dL (9-20) H 10/30/21 04:34 Creatinine 1.2 mg/dL (0.8-1.3) 10/30/21 17:38 Estimated GFR > 60 ml/min 10/30/21 17:38 BUN/Creatinine Ratio 23 % 10/30/21 04:34 Glucose 141 mg/dL (75-100) H 10/30/21 04:34 Calcium 8.6 mg/dL (8.4-10.2) 10/30/21 04:34 Magnesium 1.80 mg/dL (1.7-2.3) 10/29/21 13:24 Total Bilirubin 0.50 mg/dL (0.1-1.2) 10/29/21 02:00 AST 44 units/L (5-40) H 10/29/21 02:00 ALT 29 units/L (7-56) 10/29/21 02:00 Alkaline Phosphatase 154 units/L (35-129) H 10/29/21 02:00 Troponin T < 0.010 ng/mL (0.00-0.029) 10/29/21 02:00 NT-Pro-B Natriuret Pep 1219 pg/mL (0-900) H 10/29/21 02:00 Total Protein 7.7 g/dL (6.3-8.2) 10/29/21 02:00 Albumin 3.7 g/dL (3.9-5) L 10/29/21 02:00 Albumin/Globulin Ratio 0.9 % 10/29/21 02:00 TSH 3.290 mlU/mL (0.270-4.200) 10/29/21 13:24 Free T4 0.75 ng/dL (0.76-1.46) L 10/29/21 13:24 SARS-CoV-2 (PCR) Negative (Negative) 10/30/21 16:49 Hyatt/IV: Voiding Method Urinal Active Medications - Current Medications Current Medications: Generic Name Dose Route Start Last Admin Trade Name Freq PRN Reason Stop Dose Admin Acetaminophen 650 mg 10/29/21 05:19 10/29/21 21:47 Acetaminophen 325 Mg Tab PO 650 mg Q6H PRN Administration Pain MILD(1-3)/Fever >100.5/OFRBES Amiodarone HCl 200 mg 10/30/21 13:00 10/31/21 21:25 Amiodarone 200 Mg Tab PO 200 mg BID SERENITY Administration Apixaban 5 mg 10/30/21 14:00 10/31/21 21:26 Apixaban 5 Mg Tab PO 5 mg Q12HR SERENITY Administration Protocol Carvedilol 6.25 mg 10/30/21 14:00 10/31/21 21:25 Carvedilol 6.25 Mg Tab PO 6.25 mg BID SERENITY Administration Furosemide 40 mg 10/29/21 06:00 11/01/21 06:27 Furosemide 40 Mg/4 Ml Inj IV 40 mg BID@0600,1800 SERENITY Administration Milrinone Lactate/Dextrose 20 mg in 100 mls @ 11.07 mls/hr 10/30/21 14:00 11/01/21 07:20 Milrinone-D5w 20 Mg/100 Ml IV 11/02/21 13:59 0.375 mcg/kg/min DIRECT SERENITY 11.07 mls/hr Administration Protocol 0.375 MCG/KG/MIN Lisinopril 5 mg 10/30/21 14:00 10/31/21 09:47 Lisinopril 5 Mg Tab PO 5 mg QDAY SERENITY Administration Magnesium Hydroxide 30 ml 10/29/21 05:19 Magnesium Hydroxide (Mom) Oral Liqd Udc PO Q4H PRN Constipation Morphine Sulfate 2 mg 10/29/21 05:19 10/30/21 23:38 Morphine 2 Mg/1 Ml Inj IV 2 mg Q4H PRN Administration Pain, Moderate (4-6) Morphine Sulfate 4 mg 10/29/21 05:19 Morphine 4 Mg/1 Ml Inj IV Q4H PRN Pain , Severe (7-10) Ondansetron HCl 4 mg 10/29/21 05:19 Ondansetron 4 Mg/2 Ml Inj IV Q8H PRN Nausea And Vomiting Sodium Chloride 10 ml 10/29/21 10:00 10/31/21 21:26 Sodium Chloride 0.9% 10 Ml Flush Syringe IV 10 ml BID SERENITY Administration Sodium Chloride 10 ml 10/29/21 05:19 Sodium Chloride 0.9% 10 Ml Flush Syringe IV PRN PRN LINE FLUSH Spironolactone 25 mg 10/30/21 14:00 10/31/21 09:48 Spironolactone 25 Mg Tab PO 25 mg QDAY SERENITY Administration Nutrition/Malnutrition Assess - Dietary Evaluation Nutrition/Malnutrition Findings: Nutrition Notes Start: 10/29/21 17:13 Freq: Status: Active Protocol: Document 10/29/21 17:13 EDUARDO (Rec: 10/29/21 17:21 EDUARDO [id number]) Nutrition Notes Need for Assessment generated from: MD Order,Education Initial or Follow up Brief Note Current Diagnosis Coronary Artery Disease,Stroke Other Pertinent Diagnosis CAD s/p Stent Placement, HFpEF , Dyspnea. Current Diet Cardiac Diet (since B 10/29). Height 5 ft 9 in Weight 98.2 kg [place] Body Weight (kg) 72.72 BMI 31.9 Intake Prior to Admission Good Weight change and time frame Pt states having loss, unintentionally, between 2 and 13 lb recently. Weight Status Obese Subjective/Other Information RD consult for nutrition education assessment. No reports available on Pt's PO intake of meals at the time , will assess at F/U. Pt is on Nasal Cannula, O2 saturation @ 96%, according to Physical Assessment History notes. Pt still in critical condition , not a candidate for Nutrition Education at the time, will assess feasibility on F/U. Percent of energy/protein needs met: Prescribed Cardiac Diet provides for energy/protein needs (2,230 Kcal/85 g) during LOS. Nutrition Intervention Follow-Up By: 11/05/21 Additional Comments Nutrition education will be provided at F/U, if feasible. Continue monitoring food tolerance, %PO intake of meals , and BM.
[2021-11-01] MEDS: SPIRONOLACTONE 25 MG TAB PO SCH (11:21)
[2021-11-01] MEDS: APIXABAN 5 MG TAB PO SCH ×2 (11:22→22:38)
[2021-11-01] MEDS: LISINOPRIL 5 MG TAB PO SCH (11:22)
[2021-11-01] MEDS: carvediloL 6.25 MG TAB PO SCH ×2 (11:22→22:37)
[2021-11-01] MEDS: AMIODARONE 200 MG TAB PO SCH ×2 (11:22→22:38)
[2021-11-02 05:16] LABS: Hemoglobin 15.5 gm/dl (11.8-15.2); Mean Corpuscular HGB Conc 32 % (32-34); Mean Corpuscular Volume 91 fl (84-94); Platelet Count 225 K/mm3 (140-440); Red Blood Count 5.41 M/mm3 (3.65-5.03); Red Cell Distribution Width 16.1 % (13.2-15.2)
[2021-11-02 05:27] LABS: BUN/Creatinine Ratio 28; Blood Urea Nitrogen 22 mg/dL (9-20); Calcium 8.7 mg/dL (8.4-10.2); Hemolysis Index 19
[2021-11-02] MEDS: FUROSEMIDE 40 MG/4 ML INJ IV SCH (05:28)
[2021-11-02] MEDS: MILRINONE-D5W 20 MG/100 ML 20 MG/100 ML BAG IV SCH (07:41)
--- NOTE | 2021-11-02 08:01 | Discharge Summary ---
Providers - Providers Date of Admission: 10/29/21 05:00 Attending physician: MARIANA FLOR MD 10/29/21 05:23 Consult to Dietitian/Nutrition [CONS] Routine Physician Instructions: Reason For Exam: Reason for Consult: Diet education 10/29/21 09:42 Consult to Physician [CONS] Routine Comment: Consulting Provider: FLACO KAPOOR Physician Instructions: Reason For Exam: chf Primary care physician: ANISH WARE Hospitalization Reason for admission: CHF Condition: Stable Hospital course: 60-year-old male with known history of CVA, coronary artery disease with stent placement, CHF presenting in the emergency room today complaining of shortness of breath which started earlier today. Shortness of breath was said to have go tten progressively worse. He denies any chest pain, no nausea or vomiting and no abdominal pain. Denies any headache or dizziness and denies any diaphoresis. He has had some mild cough which is nonproductive. Patient denies any sick contacts and no recent travel. Denies any contact with anyone with COVID-19. Upon arrival in the emergency room patient was found to be in acute respiratory distress and was subsequently placed on BiPAP. Work-up in the emergency room today, chest x-ray reveals stable cardiomegaly, no focal airspace consolidation, there is minimal interstitial edema. Labs were significant for BNP of 1219. All other labs were essentially unremarkable. CT angio pending to rule out pulmonary embolism and Doppler of lower extremities also pending. 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 Also noted to have atrial fibrillation for which patient is currently on amiodarone drip. It is presumed that the patient has obstructive sleep apnea considering his obesity and sleep pattern. Outpatient sleep study will be conducted and recommended on discharge. He does have a noted leukocytosis although did not receive any steroids no evidence of fever and no source of infection appreciated. Will monitor and trend this. We will continue monitoring in IMCU at this time until weaned off amiodarone. We will check thyroid function in addition to current work-up. 10/31: Patient seen and examined appears to be improving but I was a little bit concerned this morning as his oxygen was out and he was having increased work of breathing with his respiration. However cardiology had yesterday started Milirone, Amiodarone converted to oral. Continue to monitor IMCU we will probably transfer to the floor tomorrow if symptomatically better and anticipate discharge in 48 hours. He does have a subclinical hypothyroidism will monitor closely 11/01: Patient seen and examined, sitting up, showing some clinical improvement, will transfer to the medical floor, continues on Milarone drip anticipate discharge in 24 hrs, Will obtain home o2 eval today. Plan discussed with the patient 11/02: Patient with hx of Atrial fibrillation with RVR now with Slow ventricular response. will change Amiodarone to daily from BID, continue BB. Will check for qualification of home o2. He has been on Milarone going on 60hrs, will plan on discharge today considering good diuresis and strongly recommend follow up at the community clinics and with cardiology. I have stressed the importance of Sleep study considering his large neck and BMI which is likely underestimated, he verbalized understanding. Assessment Acute exacerbation of congestive heart failure presumed systolic Atrial fibrillation Morbid obesity History of CVA Subclinical hypothyroidism Presumed obstructive sleep apnea Systemic inflammatory response syndrome without evidence of sepsis or organ dysfunction Plan Strict I's and O's Continue Diuretics and monitor daily wieght Continue appropriate home medications DVT/GI prophy Disposition: HOME / SELF CARE / HOMELESS Final Discharge Diagnosis (Prints w/discharge instructions): Acute exacerbation of congestive heart failure presumed systolic. Atrial fibrillation. Morbid obesity. History of CVA. Subclinical hypothyroidism. Presumed obstructive sleep apnea. Systemic inflammatory response syndrome without evidence of sepsis or organ dysfunction Time spent for discharge: 35 mins Core Measure Documentation - Palliative Care Palliative Care/ Comfort Measures: Not Applicable - Core Measures Any of the following diagnoses?: none Exam - Physical Exam Narrative exam: VITAL SIGNS: Reviewed. GENERAL: The patient appears normally developed, Sitting up, Vital signs as documented. HEAD: No signs of head trauma. EYES: Pupils are equal. Extraocular motions intact. EARS: Hearing grossly intact. MOUTH: Oropharynx is normal. NECK: No adenopathy, no JVD. CHEST: Chest with Clear breath sounds bilaterally. CARDIAC: Irregularly irregular. S1 and S2, without murmurs, gallops, or rubs. VASCULAR: 2+ bilateral pitting edema. Peripheral pulses normal and equal in all extremities. ABDOMEN: Soft, non tender and non distended. No rebound or guarding, and no masses palpated. Bowel Sounds normal. MUSCULOSKELETAL: Good range of motion of all major joints. Extremities without clubbing, cyanosis. 2+ bilateral pitting edema. NEUROLOGIC EXAM: Alert and oriented x 3 No focal sensory or strength deficits. Speech normal. Follows commands. PSYCHIATRIC: Mood normal. SKIN: detail exam as documented in skin assessment - Constitutional Vitals: Temp Pulse Resp BP Pulse Ox 98.8 F 44 L 18 149/71 94 11/02/21 07:30 11/02/21 07:30 11/02/21 07:30 11/02/21 07:30 11/02/21 07:30 Plan Activity: advance as tolerated, fall precautions Diet: low fat Special Instructions: restrict fluid intake to (1200cc/day), record daily weights, record daily BP diary Plan of Treatment: MUST HAVE SLEEP STUDY OUTPATIENT MANJULA MUST FOLLOW WITH FAMILY DOCTOR TO ENSURE REPEAT LABS AND MONITORING OF ELECTROLYTES MUST FOLLOW WITH CHEMICAL ETCH OPERATOR MUST LOSE WEIGHT Follow up with: ANISH WARE MD [Primary Care Provider] - 3-5 Days FLACO KAPOOR MD [Staff Physician] - 7 Days Prescriptions: RX: Spironolactone [Aldactone] 25 mg PO QDAY #30 tablet RX: Amiodarone [Cordarone 200 MG TAB] 200 mg PO DAILY #30 tablet RX: carvediloL [Coreg] 6.25 mg PO BID #60 tablet RX: Apixaban [Eliquis] 5 mg PO Q12HR #60 tablet Furosemide [Lasix TAB] 40 mg PO QDAY #30 tablet RX: lisinopriL [Zestril TAB] 5 mg PO QDAY #30 tablet
--- NOTE | 2021-11-02 08:27 | XRay Report ---
CHEST 1 VIEW INDICATION / CLINICAL INFORMATION: shortness of breath. FINDINGS: SUPPORT DEVICES: None. HEART / MEDIASTINUM: No significant abnormality. LUNGS / PLEURA: No significant pulmonary or pleural abnormality. No pneumothorax. ADDITIONAL FINDINGS: No significant additional findings. IMPRESSION: 1. No acute findings. Signer Name: Stepan Dowd MD Signed: 11/02/2021 8:23 AM Workstation Name: [id number]
[2021-11-02] MEDS: APIXABAN 5 MG TAB PO SCH (09:19)
[2021-11-02] MEDS: SPIRONOLACTONE 25 MG TAB PO SCH (09:20)
[2021-11-02] MEDS: LISINOPRIL 5 MG TAB PO SCH (09:20)
[2021-11-02] MEDS: carvediloL 6.25 MG TAB PO SCH (09:20)
--- NOTE | 2021-11-02 09:47 | Progress Note ---
Assessment and Plan 1. Chronic combined systolic and diastolic Heart failure. 2. Dilated cardiomyopathy with biventricular failure left ventricular ejection fraction less than 20% 3. Coronary artery disease with a history of PCI and stent insertion 4. Permanent Atrial Fib 5. History of CVA 6. Obesity Plan Cardiac davis stable. Continue conservative see HF management as per GDMT. Okay to discharge home today Subjective Date of service: 11/02/21 Principal diagnosis: Shortness of breath, congestive heart failure, atrial fibrillation Interval history: No cardiac symptoms Objective Vital Signs Temp Pulse Pulse Resp BP BP Pulse Ox 11/02/21 08:48 97 11/02/21 07:30 98.8 F 44 L 18 149/71 94 11/02/21 04:00 18 98 11/02/21 03:34 97.9 F 45 L 19 118/70 93 11/02/21 00:00 98.1 F 68 18 101/75 98 11/01/21 23:36 98.1 F 68 18 101/75 96 11/01/21 22:37 47 L 171/91 11/01/21 22:00 91 H 11/01/21 20:00 18 98 11/01/21 19:35 98.1 F 47 L 18 171/91 95 11/01/21 18:05 42 L 161/83 95 11/01/21 16:00 98 11/01/21 15:06 45 L 17 132/67 95 11/01/21 14:41 87 26 H 145/46 97 11/01/21 14:01 84 19 145/46 96 11/01/21 13:01 85 19 150/70 94 11/01/21 12:01 114 H 11 L 150/70 97 11/01/21 12:00 97.7 F 80 18 100 11/01/21 11:22 93 H 150/70 11/01/21 11:21 104 H 150/70 11/01/21 11:00 88 17 150/70 98 11/01/21 10:25 98 11/01/21 10:01 78 18 150/79 96 11/01/21 10:00 92 H - Physical Examination General: Appears Well, Other (Mild dyspnea at rest) HEENT: Positive: PERRL, Mucus Membranes Moist Neck: Positive: neck supple, trachea midline. Negative: JVD/HJR Cardiac: Positive: irregularly irregular, S1/S2, S3, PMI, Laterally Displaced Lungs: Positive: Normal Breath Sounds, No Wheeze, Rales, Rhonchi Neuro: Positive: Grossly Intact Abdomen: Positive: Soft Skin: Positive: Clear Extremities: Absent: edema - Labs and Meds CBC 11/02/21 Range/Units 04:17 WBC 11.3 H (4.5-11.0) K/mm3 RBC 5.41 H (3.65-5.03) M/mm3 Hgb 15.5 H (11.8-15.2) gm/dl Hct 49.0 H (35.5-45.6) % Plt Count 225 (140-440) K/mm3 Comprehensive Metabolic Panel 11/02/21 Range/Units 04:17 Sodium 138 (137-145) mmol/L Potassium 4.1 (3.6-5.0) mmol/L Chloride 101.3 (98-107) mmol/L Carbon Dioxide 25 (22-30) mmol/L BUN 22 H (9-20) mg/dL Creatinine 0.8 (0.8-1.3) mg/dL Glucose 120 H (75-100) mg/dL Calcium 8.7 (8.4-10.2) mg/dL
[2021-11-02] MEDS ORDERED: AMIODARONE 200 MG TAB PO SCH (10:00)
[2021-11-02 11:55] VITALS: BP 150/72
== END 2021-11-02 15:33 | disposition home or self-care (01) | DRG 291 ==
LOC: ED 01:15 → 4A 05:00 → IMCU 05:41 → 4A 11-01 14:51
PROVIDERS: ADMIT Internal Medicine Geriatric Medicine; ATTEND Internal Medicine
PROC: 4A033R1 Measurement of Arterial Saturation, Peripheral, Percutaneous Approach (ICD-10-PCS; principal; 2021-10-29)
PROC: 5A09457 Assistance with Respiratory Ventilation, 24-96 Consecutive Hours, Continuous Positive Airway Pressure (ICD-10-PCS; 2021-10-29)
PROC: 5A09357 Assistance with Respiratory Ventilation, Less than 24 Consecutive Hours, Continuous Positive Airway Pressure (ICD-10-PCS; 2021-11-02)
DX: I11.0 Hypertensive heart disease with heart failure (principal); I50.43 Acute on chronic combined systolic (congestive) and diastolic (congestive) heart failure; R65.10 Systemic inflammatory response syndrome (SIRS) of non-infectious origin without acute organ dysfunction; I48.21 Permanent atrial fibrillation; I42.0 Dilated cardiomyopathy; Z20.822 Contact with and (suspected) exposure to COVID-19; E66.01 Morbid (severe) obesity due to excess calories; Z68.32 Body mass index [BMI] 32.0-32.9, adult; I25.2 Old myocardial infarction; I25.10 Atherosclerotic heart disease of native coronary artery without angina pectoris; E03.8 Other specified hypothyroidism; G47.33 Obstructive sleep apnea (adult) (pediatric); Z86.73 Personal history of transient ischemic attack (TIA), and cerebral infarction without residual deficits
CPT/HCPCS: 36415; 71045; 71275; 80048; 80053; 82565; 82805; 83735; 83880; 84439; 84443; 84484; 85025; 85027; 85379; 85610; 85730; 93005; 93306; 93970; 94660; 94760; G0378; J3490; J7060; C8929; J0282; J0330; J1644; J1940; J2260; J2270; J3010; Q9967; U0003